=== PATIENT | male | born 1970 | race African-American/Black ===

== ENCOUNTER 2017-04-17 13:45 | Emergency (ER) | payer OTHER ==
[~2017-04-17] VITALS: Ht 172.7 cm; Wt 70.3 kg
[2017-04-17] MEDS ORDERED: LIDOCAINE (700MG/PATCH) PATCH. TD ONE (14:00)
--- NOTE | 2017-04-17 14:20 | RAD ---
Pelvis with right hip, 3 views, 04/17/2017: History: Hip pain No fracture or dislocation is identified. There is mild narrowing of both hip joints superiorly. There is only minimal marginal spurring. The periarticular soft tissues are unremarkable. IMPRESSION: 1. Mild narrowing of both hip joints. 2. No acute bony abnormality is detected.
[2017-04-17 14:29] VITALS: BP 130/80
[2017-04-17] MEDS ORDERED: predniSONE 10 MG TABLET PO ONE (14:30)
[2017-04-17] MEDS ORDERED: lidoderm 5% patch TOP (14:31)
[2017-04-17] MEDS ORDERED: TRAM50TA PO (14:31)
[2017-04-17] MEDS ORDERED: PRED50TA PO (14:31)
--- NOTE | 2017-04-17 14:44 | ED.ADGEN ---
Past History Past Medical History: No Pertinent History Past Surgical History: No Surgical History Alcohol Use: Occasionally Drug Use: None Adult General Chief Complaint Chief Complaint R hip pain HPI HPI Patient is a 47 year old male who presents with R hip pain that started 11 days ago. He states it hurts on the right lateral hip, does worsen when he lays directly on his side hurts with movement. He denies any fevers, no known injury , no prior similar symptoms. He has follow-up scheduled later this week with his primary care physician at [facility]. He's been taking leftover Percocet at home with some improvement but he only has 1 tablet left. Review of Systems Review of Systems Constitutional: Denies fever or chills [] Eyes: Denies change in visual acuity, redness, or eye pain [] HENT: Denies nasal congestion or sore throat [] Respiratory: Denies cough or shortness of breath [] Cardiovascular: Denies chest pain GI: Denies abdominal pain, nausea, vomiting, bloody stools or diarrhea [] : Denies dysuria or hematuria [] Musculoskeletal: Denies back pain Integument: Denies rash or skin lesions [] Neurologic: Denies headache, focal weakness or sensory changes [] Current Medications Current Medications Current Medications Medications (Trade) Dose Ordered Sig/Slime Start Time Stop Time Status Last Admin Dose Admin Lidocaine (Lidoderm) 1 patch 1X ONCE 04/17/17 14:00 04/17/17 14:04 DC 04/17/17 14:18 1 PATCH Prednisone (Prednisone) 50 mg 1X ONCE 04/17/17 14:30 04/17/17 14:31 DC 04/17/17 14:18 50 MG Allergies Allergies Allergies Coded Allergies Type Severity Reaction Last Updated Verified ibuprofen Allergy Severe 04/17/17 Yes Physical Exam Physical Exam Constitutional: Well developed, well nourished, no acute distress, non-toxic appearance. HENT: Normocephalic, atraumatic Eyes: conjunctiva normal, no discharge. Neck:supple Cardiovascular:Heart rate regular with regular rhythm Lungs & Thorax: No respiratory distress Skin: Warm, dry Extremities: Right lateral hip with point tenderness directly over the right bursa, full range of motion of the right lower extremity, normal coloration, no edema, no fluctuance, distal pulses intact Neurologic: Alert and oriented X 3, normal sensory function, no focal deficits noted. Psychologic: mood normal. Current Patient Data Vital Signs Vital Signs Date Time Temp Pulse Resp B/P (MAP) Pulse Ox O2 Delivery O2 Flow Rate FiO2 04/17/17 14:29 94 18 130/80 (97) 99 Room Air 04/17/17 13:56 98.2 EKG EKG [] Radiology/Procedures Radiology/Procedures X-ray pelvis and right hip:IMPRESSION: 1. Mild narrowing of both hip joints. 2. No acute bony abnormality is detected. [] Course & Med Decision Making Course & Med Decision Making Pertinent Labs and Imaging studies reviewed. (See chart for details) Patient is afebrile, he does not show signs of septic joint. X-ray was performed and reviewed. Patient received by mouth prednisone and a Lidoderm patch. Recommended prednisone as patient is allergic to ibuprofen, Lidoderm patch, tramadol as needed and to keep follow-up with primary care physician. Recommended patient to discuss with PCP if orthopedic follow-up will be needed if the symptoms do not resolve. Planed strict return precautions to the patient that if he has any fever or unable to bear weight on the affected extremity he should return immediately to the emergency room. Final Impression Final Impression Acute right hip bursitis[] Problems: Dragon Disclaimer Dragon Disclaimer This electronic medical record was generated, in whole or in part, using a voice recognition dictation system. SUZE MEDINA MD Apr 17, 2017 14:44
== END 2017-04-17 14:40 | disposition home or self-care (01) ==
LOC: ER 13:45
DX: M70.71 Other bursitis of hip, right hip (principal); Y93.89 Activity, other specified; Z88.6 Allergy status to analgesic agent
CPT/HCPCS: 73502; 99284; J7512

== ENCOUNTER 2017-10-18 12:46 | Emergency (ER) | payer OTHER ==
[~2017-10-18] VITALS: Ht 172.7 cm; Wt 68.0 kg
[~2017-10-18 12:46] MED LIST: PRED50TA PO; TRAM50TA PO; lidoderm 5% patch TOP
[2017-10-18] MEDS ORDERED: OXYC-323 PO (13:01)
[2017-10-18] MEDS ORDERED: NAPR-683 PO (13:24)
[2017-10-18] MEDS ORDERED: HYDR-971 PO (13:24)
[2017-10-18] MEDS ORDERED: CYCL-331 PO (13:24)
--- NOTE | 2017-10-18 13:25 | PHYS DOC ---
Past History Past Medical History: Other Past Surgical History: Other Smoking: Non-smoker Alcohol Use: Occasionally Drug Use: None Adult General Chief Complaint Chief Complaint: BACK PAIN - NO INJURY HPI HPI 47-year-old male patient with history of chronic back pain on daily Percocet states he took his last Percocet 4 days ago and since then has had increasing low back sharp pain without radiation. Patient rated his pain 6/10 that increased to 8/10 with activity. She denies focal neuro deficit, urine and bowel incontinence, fever and chills, abdominal pain, nausea and vomiting, chest pain or shortness of breath. Review of Systems Review of Systems Constitutional: Denies fever or chills [] Eyes: Denies change in visual acuity, redness, or eye pain [] HENT: Denies nasal congestion or sore throat [] Respiratory: Denies cough or shortness of breath [] Cardiovascular: No additional information not addressed in HPI [] GI: Denies abdominal pain, nausea, vomiting, bloody stools or diarrhea [] : Denies dysuria or hematuria [] Musculoskeletal: Reports back pain ] Integument: Denies rash or skin lesions [] Neurologic: Denies headache, focal weakness or sensory changes [] Endocrine: Denies polyuria or polydipsia [] All other systems were reviewed and found to be within normal limits, except as documented in this note. Allergies Allergies Allergies Coded Allergies Type Severity Reaction Last Updated Verified ibuprofen Allergy Severe 10/18/17 Yes Physical Exam Physical Exam Constitutional: Well developed, well nourished, mild distress, non-toxic appearance. [] HENT: Normocephalic, atraumatic Eyes: PERRLA, EOMI, conjunctiva normal, no discharge. [] Neck: Normal range of motion, no tenderness, supple, no stridor. [] Cardiovascular:Heart rate regular rhythm, no murmur [] Lungs & Thorax: Bilateral breath sounds clear to auscultation [] Abdomen: Bowel sounds normal, soft, no tenderness, no masses, no pulsatile masses. [] Skin: Warm, dry, no erythema, no rash. [] Back: No midline tenderness, no CVA tenderness , limited range of motion because of pain. [] Extremities: No tenderness, no cyanosis, no clubbing, ROM intact, no edema. [] Neurologic: Alert and oriented X 3, normal motor function, normal sensory function, no focal deficits noted. [] Psychologic: Affect normal, judgement normal, mood normal. [] Current Patient Data Vital Signs Vital Signs Date Time Temp Pulse Resp B/P (MAP) Pulse Ox O2 Delivery O2 Flow Rate FiO2 10/18/17 12:46 98.7 95 18 98 Room Air EKG EKG [] Radiology/Procedures Radiology/Procedures [] Course & Med Decision Making Course & Med Decision Making discharge: I've spoken with the patient and/or caregivers. I've explained the patient's condition, diagnosis and treatment plan based on information available to me at this time. I've answered the patient's and/or caregivers questions and addressed any concerns. The patient and/or caregivers have a good understanding the patient's diagnosis, condition and treatment plan as can be expected at this point. Vital signs have been stabilized. The patient's condition is stable for discharge from the emergency department. The patient will pursue further outpatient evaluation with her primary care provider or other designated consulting physician as outlined in the discharge instructions. Patient and/or caregivers are agreeable to this plan of care and follow-up instructions have been explained in detail. The patient and/or caregivers have received these instructions in written format and expressed understanding of these discharge instructions. The patient and her caregivers are aware that if any significant change in condition or worsening of symptoms should prompt him to immediately return to this of the closest emergency department. If an emergent department is not readily available I would encourage him to call 911. Bola Disclaimer Bola Disclaimer This electronic medical record was generated, in whole or in part, using a voice recognition dictation system. Departure Departure: Impression: Primary Impression: Acute exacerbation of chronic low back pain Additional Impression: Medication refill Disposition: HOME, SELF-CARE (at 1319) Condition: STABLE Referrals: GARY DUQUE (PCP) Patient Instructions: Chronic Back Pain Additional Instructions: Apply ice on your back Follow-up with your primary care physician in 3-5 days Return to ER if not getting better Scripts Naproxen (NAPROSYN) 500 Mg Tablet 1 TAB PO BID, #20 TAB Prov: BRITTANIE CELAYA MD 10/18/17 Cyclobenzaprine Hcl (CYCLOBENZAPRINE HCL) 10 Mg Tablet 1 TAB PO TID, #30 TAB Prov: BRITTANIE CELAYA MD 10/18/17 Hydrocodone Bit/Acetaminophen (NORCO 5-325 TABLET) 1 Each Tablet 1 TAB PO PRN Q6HRS PRN for PAIN, #14 TAB 0 Refills Prov: BRITTANIE CELAYA MD 10/18/17 Problem Qualifiers BRITTANIE CELAYA MD Oct 18, 2017 13:25
[2017-10-18 15:09] VITALS: BP 131/83
== END 2017-10-18 15:09 | disposition home or self-care (01) ==
LOC: ER 12:46
DX: G89.29 Other chronic pain (principal); M54.5 Low back pain; Z76.0 Encounter for issue of repeat prescription; Z88.6 Allergy status to analgesic agent
CPT/HCPCS: 99283

== ENCOUNTER 2017-12-03 13:02 | Emergency (ER) | payer OTHER ==
[~2017-12-03] VITALS: Ht 172.7 cm; Wt 70.0 kg
[~2017-12-03 13:02] MED LIST changes: +CYCL-331 PO; +HYDR-971 PO; +NAPR-683 PO; +OXYC-323 PO
--- NOTE | 2017-12-03 13:37 | PHYS DOC ---
Past History Past Medical History: Other Past Surgical History: Other Smoking: Non-smoker Alcohol Use: Occasionally Drug Use: None Adult General Chief Complaint Chief Complaint: BACK PAIN OR INJURY [facility] HPI 47-year-old male presents with left-sided back pain. The patient was walking down the stairs at work 4 days ago when the step was wet. He slipped, but did not fall. As he caught himself he "wrenched my back". It hurts at around T8 level just below the shoulder blade. The pain runs from just lateral to the spine underneath the shore blade into his axillary area. He has taken naproxen, tramadol, and methocarbamol without relief. His had a couple Vicodin left over from a dental prescription. He tried one of these last night and this helped the pain. The patient presents today because the pain has returned with equal intensity after the medication wore off. He denies fever or chills. No other history of trauma in this area. He has known degenerative disc disease and bone spurring in the cervical spine. Review of Systems Review of Systems Constitutional: Denies fever or chills [] Eyes: Denies change in visual acuity, redness, or eye pain [] HENT: Denies nasal congestion or sore throat [] Respiratory: Denies cough or shortness of breath [] Cardiovascular: No additional information not addressed in HPI [] GI: Denies abdominal pain, nausea, vomiting, bloody stools or diarrhea [] : Denies dysuria or hematuria [] Musculoskeletal: Thoracic back pain[] Integument: Denies rash or skin lesions [] Neurologic: Denies headache, focal weakness or sensory changes [] Endocrine: Denies polyuria or polydipsia [] All other systems were reviewed and found to be within normal limits, except as documented in this note. Allergies Allergies Allergies Coded Allergies Type Severity Reaction Last Updated Verified ibuprofen Allergy Severe 10/18/17 Yes Physical Exam Physical Exam Constitutional: Well developed, well nourished, no acute distress, non-toxic appearance. [] HENT: Normocephalic, atraumatic, bilateral external ears normal, oropharynx moist, no oral exudates, nose normal. [] Eyes: PERRLA, EOMI, conjunctiva normal, no discharge. [] Neck: Normal range of motion, no tenderness, supple, no stridor. [] Cardiovascular:Heart rate regular rhythm, no murmur [] Lungs & Thorax: Bilateral breath sounds clear to auscultation [] Abdomen: Bowel sounds normal, soft, no tenderness, no masses, no pulsatile masses. [] Skin: Warm, dry, no erythema, no rash. [] Back: Tenderness of paraspinal muscles on the left around T8. Tenderness radiates laterally to the posterior axillary line. [] Extremities: No tenderness, no cyanosis, no clubbing, ROM intact, no edema. [] Neurologic: Alert and oriented X 3, normal motor function, normal sensory function, no focal deficits noted. [] Psychologic: Affect normal, judgement normal, mood normal. [] Current Patient Data Vital Signs Vital Signs Date Time Temp Pulse Resp B/P (MAP) Pulse Ox O2 Delivery O2 Flow Rate FiO2 12/03/17 13:15 98.1 104 18 98 Room Air EKG EKG [] Radiology/Procedures Radiology/Procedures [] Impressions: 3 view thoracic spine 12/03/2017 CLINICAL INDICATION: Back pain after twisting injury. COMPARISON: None. FINDINGS: No acute fracture or traumatic malalignment. Vertebral body heights are maintained. Minimal thoracic spondylosis with osteophytic spurring of the midthoracic spine. IMPRESSION: No radiographic evidence of acute thoracic spine abnormality. Electronically signed by: Florentino Ly MD (12/03/2017 1:48 PM) [id number] DICTATED AND SIGNED BY: FLORENTINO LY MD DATE: 12/03/17 1347 CC: NEDA SEGUNDO DO; GARY DUQUE Course & Med Decision Making Course & Med Decision Making Pertinent Labs and Imaging studies reviewed. (See chart for details) The patient does not have evidence of acute change in the thoracic spine. He has some minimal spondylosis with osteophytic spurring in the midthoracic. I believe the patient has a thoracic strain that is likely complicated with his degenerative changes. I will discharge him with a short course of Powers 5/325 and recommend he follow up with his PCP if it does not rapidly improve. [] Dragon Disclaimer Dragon Disclaimer This electronic medical record was generated, in whole or in part, using a voice recognition dictation system. Departure Departure: Referrals: GARY DUQUE (PCP) Scripts Hydrocodone Bit/Acetaminophen (NORCO 5-325 TABLET) 1 Each Tablet 1 TAB PO PRN Q6HRS PRN for PAIN, #10 TAB 0 Refills Prov: NEDA SEGUNDO DO 12/03/17 NEDA SEGUNDO DO Dec 03, 2017 13:37
[2017-12-03] MEDS ORDERED: HYDR-971 PO (13:40)
--- NOTE | 2017-12-03 13:51 | RAD ---
3 view thoracic spine 12/03/2017 CLINICAL INDICATION: Back pain after twisting injury. COMPARISON: None. FINDINGS: No acute fracture or traumatic malalignment. Vertebral body heights are maintained. Minimal thoracic spondylosis with osteophytic spurring of the midthoracic spine. IMPRESSION: No radiographic evidence of acute thoracic spine abnormality. Electronically signed by: Александр Ly MD (12/03/2017 1:48 PM) [id number]
[2017-12-03 14:14] VITALS: BP 128/81
== END 2017-12-03 14:15 | disposition home or self-care (01) ==
LOC: ER 13:02
DX: M47.894 Other spondylosis, thoracic region (principal); M25.78 Osteophyte, vertebrae; G89.11 Acute pain due to trauma; X50.1XXA Overexertion from prolonged static or awkward postures, initial encounter; Y93.01 Activity, walking, marching and hiking; Y92.89 Other specified places as the place of occurrence of the external cause; Y99.8 Other external cause status; Z88.6 Allergy status to analgesic agent
CPT/HCPCS: 72072; 99284

== ENCOUNTER 2017-12-05 17:29 | Emergency (ER) | payer OTHER ==
[~2017-12-05] VITALS: Ht 167.6 cm; Wt 68.5 kg
--- NOTE | 2017-12-05 17:43 | ED.ADGEN ---
Past History Past Medical History: Other Past Surgical History: Other Smoking: Non-smoker Alcohol Use: Occasionally Drug Use: None Adult General HPI HPI Review of Systems Review of Systems All other systems were reviewed and found to be within normal limits, except as documented in this note. Allergies Allergies Allergies Coded Allergies Type Severity Reaction Last Updated Verified ibuprofen Allergy Severe 10/18/17 Yes EKG EKG [] Radiology/Procedures Radiology/Procedures [] Course & Med Decision Making Course & Med Decision Making Pertinent Labs and Imaging studies reviewed. (See chart for details) [] Final Impression Final Impression [] Dragon Disclaimer Dragon Disclaimer This electronic medical record was generated, in whole or in part, using a voice recognition dictation system. KLEBER BRANNON MD Dec 05, 2017 17:43
[2017-12-05] MEDS ORDERED: MELO15TA6 PO (17:50)
[2017-12-05] MEDS ORDERED: HYDR-971 PO (17:50)
--- NOTE | 2017-12-05 17:55 | PHYS DOC ---
Past History Past Medical History: Other Past Surgical History: Other Smoking: Non-smoker Alcohol Use: Occasionally Drug Use: None Adult General Chief Complaint Chief Complaint: BACK PAIN OR INJURY HPI HPI Patient is a 47-year-old male complaining of low back pain after bowel movement 6 days ago. Patient states he was seen in this emergency room 2 days ago and had 10 pills of Vicodin but finished the last this morning and his pain started this afternoon as a sharp and constant pain that getting force with movement. Patient denies focal neuro deficit and fever and chills. Patient states he has appointment with his doctor next week. Review of Systems Review of Systems Constitutional: Denies fever or chills [] Eyes: Denies change in visual acuity, redness, or eye pain [] HENT: Denies nasal congestion or sore throat [] Respiratory: Denies cough or shortness of breath [] Cardiovascular: No additional information not addressed in HPI [] GI: Denies abdominal pain, nausea, vomiting, bloody stools or diarrhea [] : Denies dysuria or hematuria [] Musculoskeletal:Reports back pain Integument: Denies rash or skin lesions [] Neurologic: Denies headache, focal weakness or sensory changes [] Endocrine: Denies polyuria or polydipsia [] All other systems were reviewed and found to be within normal limits, except as documented in this note. Allergies Allergies Allergies Coded Allergies Type Severity Reaction Last Updated Verified ibuprofen Allergy Severe 10/18/17 Yes Physical Exam Physical Exam Constitutional: Well developed, well nourished, mild distress, non-toxic appearance. [] HENT: Normocephalic, atraumatic Eyes: PERRLA, EOMI, conjunctiva normal, no discharge. [] Neck: Normal range of motion, no tenderness, supple, no stridor. [] Cardiovascular:Heart rate regular rhythm, no murmur [] Lungs & Thorax: Bilateral breath sounds clear to auscultation [] Abdomen: Bowel sounds normal, soft, no tenderness, no masses, no pulsatile masses. [] Skin: Warm, dry, no erythema, no rash. [] Back: No tenderness, no CVA tenderness, paraspinal muscle spasm. [] Extremities: No tenderness, no cyanosis, no clubbing, ROM intact, no edema. [] Neurologic: Alert and oriented X 3, normal motor function, normal sensory function, no focal deficits noted. [] Psychologic: Affect normal, judgement normal, mood normal. [] EKG EKG [] Radiology/Procedures Radiology/Procedures [] Course & Med Decision Making Course & Med Decision Making discharge: I've spoken with the patient and/or caregivers. I've explained the patient's condition, diagnosis and treatment plan based on information available to me at this time. I've answered the patient's and/or caregivers questions and addressed any concerns. The patient and/or caregivers have a good understanding the patient's diagnosis, condition and treatment plan as can be expected at this point. Vital signs have been stabilized. The patient's condition is stable for discharge from the emergency department. The patient will pursue further outpatient evaluation with her primary care provider or other designated consulting physician as outlined in the discharge instructions. Patient and/or caregivers are agreeable to this plan of care and follow-up instructions have been explained in detail. The patient and/or caregivers have received these instructions in written format and expressed understanding of these discharge instructions. The patient and her caregivers are aware that if any significant change in condition or worsening of symptoms should prompt him to immediately return to this of the closest emergency department. If an emergent department is not readily available I would encourage him to call 911. Dragon Disclaimer Dragon Disclaimer This electronic medical record was generated, in whole or in part, using a voice recognition dictation system. Departure Departure: Impression: Primary Impression: Lumbosacral strain Disposition: HOME, SELF-CARE (8095) Condition: STABLE Patient Instructions: Lumbosacral Strain Scripts Meloxicam (MOBIC) 15 Mg Tablet 1 TAB PO DAILY, #20 TAB 0 Refills Prov: BRITTANIE CELAYA MD 12/05/17 Hydrocodone Bit/Acetaminophen (NORCO 5-325 TABLET) 1 Each Tablet 1 TAB PO PRN Q6HRS PRN for PAIN, #6 TAB 0 Refills Prov: BRITTANIE CELAYA MD 12/05/17 BRITTANIE CELAYA MD Dec 05, 2017 17:55
== END 2017-12-05 18:05 | disposition home or self-care (01) ==
LOC: ER 17:29
DX: S39.012D Strain of muscle, fascia and tendon of lower back, subsequent encounter (principal); Z88.6 Allergy status to analgesic agent; X58.XXXD Exposure to other specified factors, subsequent encounter
CPT/HCPCS: 99283

== ENCOUNTER 2017-12-10 11:11 | Emergency (ER) | payer OTHER ==
[~2017-12-10] VITALS: Ht 167.6 cm; Wt 70.0 kg
[~2017-12-10 11:11] MED LIST changes: +MELO15TA6 PO
[2017-12-10 11:18] VITALS: BP 144/89
--- NOTE | 2017-12-10 15:06 | ED.ADGEN ---
Past History Past Medical History: No Pertinent History Past Surgical History: No Surgical History Smoking: Non-smoker Alcohol Use: None Drug Use: None Adult General Chief Complaint Chief Complaint Back pain HPI HPI Patient is a 47-year-old male presents with neck and back pain who presents with exacerbation of chronic low back pain. Patient was seen in the ED week ago for the same was prescribed pain medication. States he has to spit run out and is requesting refill. Patient denies fever, urinary frequency urgency, hematuria. No motor extremity weakness or loss of sensation. No bowel or bladder loss of function. [place]. He has not seen him in follow-up.[] Review of Systems Review of Systems View symptoms as per chart. All other review symptoms are negative. All other systems were reviewed and found to be within normal limits, except as documented in this note. Allergies Allergies Allergies Coded Allergies Type Severity Reaction Last Updated Verified ibuprofen Allergy Severe 10/18/17 Yes Physical Exam Physical Exam Constitutional: Well developed, well nourished, no acute distress, non-toxic appearance. [] HENT: Normocephalic, atraumatic, bilateral external ears normal, nose normal. [] Eyes: PERRLA, EOMI, conjunctiva normal. [] Neck: Normal range of motion, no stridor. [] Cardiovascular:Heart rate regular rhythm, no murmur [] Lungs & Thorax: Bilateral breath sounds clear to auscultation. [] Abdomen: Bowel sounds normal, soft, no tenderness. [] Skin: Warm, dry, no erythema, no rash. [] Back: No tenderness. [] Extremities: No tenderness. [] Neurologic: Alert and oriented X 3, normal motor function, normal sensory function, no focal deficits noted. [] Psychologic: Affect normal, judgement normal, mood normal. [] Current Patient Data Vital Signs Vital Signs Date Time Temp Pulse Resp B/P (MAP) Pulse Ox O2 Delivery O2 Flow Rate FiO2 12/10/17 11:18 98.2 88 18 98 Room Air EKG EKG [] Radiology/Procedures Radiology/Procedures [] Course & Med Decision Making Course & Med Decision Making Pertinent Labs and Imaging studies reviewed. (See chart for details) [Patient does not have any neurologic deficit or red flag symptoms suggestive of occult infection. Recommendations are for PCP follow-up for management of chronic back pain.] Final Impression Final Impression [1. Exacerbation or chronic back pain] Bola Disclaimer Bola Disclaimer This electronic medical record was generated, in whole or in part, using a voice recognition dictation system. NEDA MOLINA DO Dec 10, 2017 15:06
== END 2017-12-10 11:30 | disposition home or self-care (01) ==
LOC: ER 11:11
DX: G89.29 Other chronic pain (principal); M54.5 Low back pain; Z88.6 Allergy status to analgesic agent
CPT/HCPCS: 99281

== ENCOUNTER 2018-02-28 11:30 | Emergency (ER) | payer OTHER ==
[~2018-02-28] VITALS: Ht 167.6 cm; Wt 68.2 kg
[2018-02-28 11:30] VITALS: BP 116/82
[~2018-02-28 11:30] MED LIST changes: +HYDR-3165 PO; -HYDR-971 PO; -OXYC-323 PO; +OXYC1TAB15 PO
--- NOTE | 2018-02-28 12:12 | PHYS DOC ---
Past History Past Medical History: No Pertinent History Past Surgical History: No Surgical History Smoking: Non-smoker Alcohol Use: Occasionally Drug Use: None Adult General Chief Complaint Chief Complaint: Neck Pain HPI HPI 48-year-old male presents with right-sided neck pain. The patient turned his head quickly at home and response to another family member and had a shooting, burning pain in his neck. This occurred a little over a week ago. Since that time, the patient has continued to have intermittent neck pain. He states it is a generalized cramp worse on the right most of the time with occasional bouts of intense shooting pain. He had x-rays done at the [facility] 3 days ago that showed some arthritis. He has been taking Naprosyn, prednisone, tramadol and none of these seem to be working. The patient has been unable to tolerate gabapentin in the past. He had 2 Vicodin left over from a previous prescription that he took yesterday. He states that this helped with the pain but it came back when it wore off. He does not have any more of this medication. [facility] He denies fever or chills. He denies any numbness or tingling. Review of Systems Review of Systems Constitutional: Denies fever or chills [] Eyes: Denies change in visual acuity, redness, or eye pain [] HENT: Denies nasal congestion or sore throat [] Respiratory: Denies cough or shortness of breath [] Cardiovascular: No additional information not addressed in HPI [] GI: Denies abdominal pain, nausea, vomiting, bloody stools or diarrhea [] : Denies dysuria or hematuria [] Musculoskeletal: Neck pain[] Integument: Denies rash or skin lesions [] Neurologic: Denies headache, focal weakness or sensory changes [] Endocrine: Denies polyuria or polydipsia [] All other systems were reviewed and found to be within normal limits, except as documented in this note. Allergies Allergies Allergies Coded Allergies Type Severity Reaction Last Updated Verified ibuprofen Allergy Severe 10/18/17 Yes Physical Exam Physical Exam Constitutional: Well developed, well nourished, no acute distress, non-toxic appearance. [] HENT: Normocephalic, atraumatic, bilateral external ears normal, oropharynx moist, no oral exudates, nose normal. [] Eyes: PERRLA, EOMI, conjunctiva normal, no discharge. [] Neck: Decreased range of motion due to pain. Tenderness of the right paraspinal muscles. Muscle spasm of the right paraspinal cervical muscles.[] Cardiovascular:Heart rate regular rhythm, no murmur [] Lungs & Thorax: Bilateral breath sounds clear to auscultation [] Abdomen: Bowel sounds normal, soft, no tenderness, no masses, no pulsatile masses. [] Skin: Warm, dry, no erythema, no rash. [] Back: No tenderness, no CVA tenderness. [] Extremities: No tenderness, no cyanosis, no clubbing, ROM intact, no edema. [] Neurologic: Alert and oriented X 3, normal motor function, normal sensory function, no focal deficits noted. [] Psychologic: Affect normal, judgement normal, mood normal. [] Current Patient Data Vital Signs Vital Signs Date Time Temp Pulse Resp B/P (MAP) Pulse Ox O2 Delivery O2 Flow Rate FiO2 02/28/18 11:30 97.7 88 16 98 Room Air EKG EKG [] Radiology/Procedures Radiology/Procedures [] Course & Med Decision Making Course & Med Decision Making Pertinent Labs and Imaging studies reviewed. (See chart for details) The patient had recent x-rays, do not believe repeat imaging is warranted. The patient can follow up with the [facility] outpatient clinic tomorrow. I will give him one [place] 7.5 in the ED. I explained to the patient that he has had multiple prescriptions from different providers in locations within the last several months and that he must consolidate his pain management one provider. [facility] I also advised that he asked them about physical therapy. Patient is stable for discharge at this time. [] Dragon Disclaimer Dragon Disclaimer This electronic medical record was generated, in whole or in part, using a voice recognition dictation system. Departure Departure: Referrals: GARY DUQUE (PCP) NEDA SEGUNDO DO Feb 28, 2018 12:12
[2018-02-28] MEDS ORDERED: HYDROcodone/APAP 7.5/325MG 1 TAB TABLET PO ONE (12:15)
== END 2018-02-28 12:19 | disposition home or self-care (01) ==
LOC: ER 11:30
DX: M62.838 Other muscle spasm (principal); M54.2 Cervicalgia; Z88.6 Allergy status to analgesic agent
CPT/HCPCS: 99282

== ENCOUNTER 2019-03-17 10:39 | Emergency (ER) | payer OTHER ==
[~2019-03-17] VITALS: Ht 172.7 cm; Wt 65.2 kg
--- NOTE | 2019-03-17 11:19 | RAD ---
3 views right shoulder 03/17/2019 10:59 AM Indication: Pain following fall/injury Comparison: None Findings: There is no acute fracture or dislocation. Articular surfaces are uninterupted and smooth. Soft tissues are unremarkable. Impression: No evidence of acute osseous abnormality. Electronically signed by: Margarito Austin MD (03/17/2019 11:16 AM) [facility]
--- NOTE | 2019-03-17 11:24 | PHYS DOC ---
Past History Past Medical History: No Pertinent History Past Surgical History: Other Additional Past Surgical Histo: right shoulder surgery Smoking: Non-smoker Alcohol Use: Occasionally Drug Use: None Adult General Chief Complaint Chief Complaint: MECHANICAL FALL HPI HPI Patient is a 49-year-old male who presented to ER today for evaluation of right shoulder pain. Patient said he got out of the shower this morning and fell down hit right shoulder. Patient denies any head or neck injury. Patient had previous history of right shoulder problems with rotator cuff surgery. Patient denies any numbness or weakness in his right upper extremity. he said the pain get worse when he tried to rotate his right shoulder. All other ROS is negative unless otherwise noted in HPI Review of Systems Review of Systems See above Allergies Allergies Allergies Coded Allergies Type Severity Reaction Last Updated Verified ibuprofen Allergy Severe 03/17/19 Yes Physical Exam Physical Exam See above Constitutional: Well developed, well nourished, no acute distress, non-toxic appearance. [] HENT: Normocephalic, atraumatic, bilateral external ears normal, oropharynx moist, no oral exudates, nose normal. [] Eyes: PERRLA, EOMI, conjunctiva normal, no discharge. [] Neck: Normal range of motion, no tenderness, supple, no stridor. [] Cardiovascular:Heart rate regular rhythm, no murmur [] Lungs & Thorax: Bilateral breath sounds clear to auscultation [] Abdomen: Bowel sounds normal, soft, no tenderness, no masses, no pulsatile masses. [] Skin: Warm, dry, no erythema, no rash. [] Back: No tenderness, no CVA tenderness. [] Extremities: There is full range of motion of right shoulder, there is no deformity. There some tenderness to palpation at AC joint area. No contusion or bruises. Neurologic: Alert and oriented X 3, normal motor function, normal sensory function, no focal deficits noted. [] Psychologic: Affect normal, judgement normal, mood normal. [] Current Patient Data Vital Signs Vital Signs Date Time Temp Pulse Resp B/P (MAP) Pulse Ox O2 Delivery O2 Flow Rate FiO2 03/17/19 10:57 98.5 113 18 99 Room Air EKG EKG [] Radiology/Procedures Radiology/Procedures [][address] [address] IMAGING REPORT Signed PATIENT: NICOLE VU ACCOUNT: [id number] : 1970 LOCATION: ER AGE: 49 SEX: M EXAM STATUS: REG ER ORD. PHYSICIAN: DONALD MERAZ DO REASON: fell right shoulder injured PROCEDURE: SHOULDER 2+V RIGHT 3 views right shoulder 03/17/2019 10:59 AM Indication: Pain following fall/injury Comparison: None Findings: There is no acute fracture or dislocation. Articular surfaces are uninterupted and smooth. Soft tissues are unremarkable. Impression: No evidence of acute osseous abnormality. Electronically signed by: Margarito Fry MD (03/17/2019 11:16 AM) [facility] DICTATED AND SIGNED BY: MARGARITO FRY MD DATE: 03/17/19 1116 CC: GARY DUQUE; DONALD MERAZ DO ~ Course & Med Decision Making Course & Med Decision Making Pertinent Labs and Imaging studies reviewed. (See chart for details) [] Dragon Disclaimer Dragon Disclaimer This electronic medical record was generated, in whole or in part, using a voice recognition dictation system. Departure Departure: Impression: Primary Impression: Contusion of right shoulder Disposition: HOME, SELF-CARE Condition: STABLE Referrals: GARY DUQUE (PCP) FOLLOW UP WITH YOUR DOCTOR FOR EVALUATION WITH MRI OF YOUR SHOULDER. Patient Instructions: Contusion Additional Instructions: follow up with your doctor for outpatient evaluation with MRI OF YOUR RIGHT SHOULDER Scripts Tramadol Hcl (TRAMADOL HCL) 100 Mg Tbmp.24hr 1 TAB PO PRN Q6HRS PRN for pain MDD 1 Tablet(s) for 4 Days, #15 TAB 0 Refills Prov: DONALD MERAZ DO 03/17/19 DONALD MERAZ DO Mar 17, 2019 11:24
[2019-03-17] MEDS ORDERED: TRAM100T2 PO (11:29)
[2019-03-17 12:00] VITALS: BP 118/84
== END 2019-03-17 12:00 | disposition home or self-care (01) ==
LOC: ER 10:39
DX: S40.011A Contusion of right shoulder, initial encounter (principal); Z88.6 Allergy status to analgesic agent; W18.39XA Other fall on same level, initial encounter; Y93.89 Activity, other specified; Y92.89 Other specified places as the place of occurrence of the external cause; Y99.8 Other external cause status
CPT/HCPCS: 73030; 99284

== ENCOUNTER 2021-06-03 14:16 | Emergency (ER) | payer OTHER ==
[~2021-06-03] VITALS: Ht 170.2 cm; Wt 68.0 kg
[~2021-06-03 14:16] MED LIST changes: -CYCL-331 PO; +CYCL10TA19 PO; +TRAM100T10 PO
[2021-06-03] MEDS ORDERED: OXYMETAZOLINE 0.05% NASAL SPRAY 30ML BOTTLE. NS ONE (14:30)
[2021-06-03 14:37] VITALS: BP 144/90
--- NOTE | 2021-06-03 14:48 | PHYS DOC ---
Past History Past Medical History: No Pertinent History Additional Past Medical Histor: DEGENERATIVE DISC DISEAS (GINO FAJARDO APRN) Past Surgical History: Other Additional Past Surgical Histo: RT SHOULDER (GINO FAJARDO APRN) Smoking: Non-smoker Alcohol Use: Occasionally Drug Use: None (GINO FAJARDO APRN) General Adult EDM: Chief Complaint: NOSEBLEED HPI: HPI: Patient is a 51-year-old male who presents to the emergency department today for a nosebleed that started 1 hour ago. Patient reports that he was sitting at his computer when he started noticing a nosebleed. He denies any trauma to his n ose, history of nosebleeds, blood thinner use, headache, vision changes, nausea, vomiting. (GINO FAJARDO APRN) Review of Systems: Review of Systems: Eyes: See HPI HENT: See HPI GI: See HPI Neurologic: See HPI (GINO FAJARDO APRN) Current Medications: Current Meds: Current Medications Medications (Trade) Dose Ordered Sig/Slime Start Time Stop Time Status Last Admin Dose Admin Oxymetazoline HCl (Afrin) 2 spray 1X ONCE 06/03/21 14:30 06/03/21 14:31 DC 06/03/21 14:30 2 SPRAY (GINO FAJARDO APRN) Allergies: Allergies: Allergies Coded Allergies Type Severity Reaction Last Updated Verified ibuprofen Allergy Severe 06/03/21 Yes (GINO FAJARDO APRN) Physical Exam: PE: Constitutional: Well developed, well nourished, no acute distress, non-toxic appearance. [] HENT: Normocephalic, atraumatic, bilateral external ears normal, oropharynx moist, no oral exudates,bleeding noted from right anterior nare Eyes: PERRL, EOMI, conjunctiva normal, no discharge. [] Neck: Normal range of motion, no stridor Cardiovascular:Heart rate regular rhythm, no murmur [] Lungs & Thorax: Bilateral breath sounds clear to auscultation [] Abdomen: soft and flat Skin: Warm, dry, no erythema, no rash. [] Backnormal rom Extremities: No tenderness, no cyanosis, no clubbing, ROM intact, no edema. [] Neurologic: Alert and oriented X 3, normal motor function, normal sensory function, no focal deficits noted. [] Psychologic: Affect normal, judgement normal, mood normal. [] (GINO FAJARDO APRN) Current Patient Data: Vital Signs: Vital Signs Date Time Temp Pulse Resp B/P (MAP) Pulse Ox O2 Delivery O2 Flow Rate FiO2 06/03/21 14:37 98.2 115 20 144/90 (108) 98 Room Air (GINO FAJARDO APRN) EKG: EKG: [] (GINO FAJARDO APRN) Radiology/Procedures: Radiology/Procedures: [] (GINO FAJARDO APRN) Heart Score: C/O Chest Pain: N/A Risk Factors: Risk Factors: DM, Current or recent (<one month) smoker, HTN, HLP, family history of CAD, obesity. Risk Scores: Score 0 - 3: 2.5% MACE over next 6 weeks - Discharge Home Score 4 - 6: 20.3% MACE over next 6 weeks - Admit for Clinical Observation Score 7 - 10: 72.7% MACE over next 6 weeks - Early Invasive Strategies (GINO FAJARDO APRN) Course & Med Decision Making: Course & Med Decision Making Pertinent Labs and Imaging studies reviewed. (See chart for details) Patient presents to the emergency department today for a nosebleed that started 1 hour ago. Afrin was used as a vasoconstrictor and nasal pressure was applied. Patient reported bleeding down the back of his throat. TXA soaked gauze was placed in patients nose to help with bleeding. Packing was removed after 10-15 minutes and patient is noted to have a clot in his nose, without any active bleeding and he denies any posterior bleeding down the back of his throat. Will monitor patient for rebleeding 1715: After TXA packing and removal, bleeding has controlled. She will be discharged home with Afrin, he was educated on what to do if he has a nosebleed at home. I discussed with patient all findings and diagnostic testing as well as the need to follow-up with PCP for further evaluation and treatment or return to the ER if any new or worsening symptoms. Strict return precautions were also discussed at length. Patient voiced understanding and agreement with the plan. Patient is hemodynamically stable at the time of disposition. (GINO FAJARDO APRN) Course & Med Decision Making Did not see patient. Did not discuss patient with KILNMAN. Generally agree with KILNMAN's work-up and disposition per note (MILLA MALDONADO MD) [employer] Disclaimer: Dragon Disclaimer: This electronic medical record was generated, in whole or in part, using a voice recognition dictation system. (GINO FAJARDO APRN) Departure Departure: Impression: Primary Impression: Epistaxis Disposition: HOME / SELF CARE / HOMELESS Condition: GOOD Referrals: GARY DUQUE (PCP) Patient Instructions: Nosebleed Additional Instructions: You are seen in the emergency department for nosebleeding. This was stopped with medication called TXA. If you notice a nosebleed at home please do what we did in the emergency department today, blow your nose and instill 2 sprays of Afrin into each nostril, leaned forward and hold pressure for approximately 15 minutes. Please follow-up with your primary care provider tomorrow regarding your ER visit. If you continue to have nosebleeds, you may need to see an ENT. Return to the emergency department if you develop a nosebleed that will not stop, or if you develop dizziness, lightheadedness, syncope, intractable nausea vomiting, high fevers refractory to treatment, headache, vision changes. Scripts Oxymetazoline Hcl (AFRIN) 15 Ml Mist 15 ML NS PRN PRN for NOSE BLEED for 7 Days, #1 SPRAY 0 Refills Prov: GINO FAJARDO APRN 06/03/21 GINO FAJARDO APRN Jun 03, 2021 14:48 MILLA MALDONADO MD Jun 03, 2021 17:36
[2021-06-03] MEDS ORDERED: TRANEXAMIC ACID 1,000 MG/10 ML VIAL. TOP ONE (15:45)
[2021-06-03] MEDS ORDERED: OXYM15MI4 NS (17:17)
== END 2021-06-03 17:29 | disposition home or self-care (01) ==
LOC: ER 14:16
DX: R04.0 Epistaxis (principal); Z88.6 Allergy status to analgesic agent
CPT/HCPCS: 30901; 99283; 99284